=== PATIENT | female | born 2000 | race Caucasian/White ===

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

== ENCOUNTER 2024-02-08 13:20 | Observation (INO) ==
[2024-02-08] MEDS: SODIUM CHLORIDE 0.9% 1,000 ML IV ONE (14:20)
[2024-02-08] MEDS: KETOROLAC TROMETHAMINE 15 MG/ML VIAL IV STA (14:20)
[2024-02-08] MEDS: ONDANSETRON INJ 2 MG/ML 2 ML VIAL IV STA (14:20)
[2024-02-08 14:28] LABS: Basophils # (auto) 0.05 K/uL (0.00-0.20); Basophils % (auto) 0.7 %; Eosinophils # (auto) 0.12 K/uL (0.00-0.50); Eosinophils % (auto) 1.6 %; Hematocrit (blood only) 38.9 % (37.0-47.0); Immature Granulocytes # (auto) 0.01 K/uL (0.01-0.20); Immature Granulocytes % (auto) 0.1 %; Lymphocytes # (auto) 2.56 K/uL (1.20-3.40); Lymphocytes % (auto) 33.6 %; Mean Corpuscular Hemoglobin 28.8 pg (25.0-34.0); Mean Corpuscular Hgb Conc 33.4 g/dL (32.0-36.0); Mean Corpuscular Volume 86.3 fL (80.0-100.0); Mean Platelet Volume 10.2 fL (9.4-12.4); Monocytes % (auto) 7.9 %; Neutrophils # (auto) 4.27 K/uL (1.40-6.50); Neutrophils % (auto) 56.1 %; Platelet Count 252 K/uL (130-400); RDW Coefficient of Variation 14.6 % (11.5-14.5); RDW Standard Deviation 46.1 fL (36.4-46.3); Red Blood Count 4.51 M/uL (4.20-5.40); White Blood Count 7.61 K/ul (4.8-10.8)
[2024-02-08 14:41] LABS: BUN Creatinine Ratio 12.6 (10-20); Calcium 8.9 mg/dl (8.6-10.3); Creatinine Clr Calc Pharmacy 99.9 ml/min; Est GFR (African American) 108.1 ml/min; Est GFR (Non-African American) 93.2 ml/min; Potassium 3.6 mmol/L (3.5-5.1)
--- NOTE | 2024-02-08 16:51 | History & Physical Report ---
Date of Service February 08, 2024 Assessment & Plan (1) Hydronephrosis with renal and ureteral calculous obstruction: (2) Right flank pain: Plan: -Abdomen/pelvis CT performed yesterday showed evidence of an 8mm obstructing calculus in the right proximal ureter, as well as moderate right hydronephrosis. -Continue aggressive IVF, pain management: oral Tylenol for mild pain or IV Toradol for moderate pain or oral oxycodone for severe pain. -Continue IV ondansetron PRN for nausea, order oral Flomax and strain urine. -Urology consult, spoke to on-call who recommended NPO at midnight for possible procedure in AM. (3) Nicotine dependence, unspecified, uncomplicated: Plan: -Patient mentions that they feel like they will eventually need a nicotine patch to help curb the nicotine craving. -Patient attempting [contemplating stage] to quit. -Order nicotine patch DVT Prophylaxis: SCDs Code Status: Full Code PCP: MAGDALENA Moy Dispo: Admit to Med/Surg Patient seen in collaboration with Dr. Pierce. Please see addendum. I spent a total of 75 minutes coordinating, documenting, and providing care for this patient excluding time spent in the performance of separately billed services. This included personally reviewing all current laboratories and imaging studies, medical reconciliation, outpatient chart review and discussion with specialists. History of Present Illness Chief Complaint: Right-Sided Flank Pain Primary Care Provider: MAGDALENA Johnson Omar Ferris is a 23y/o F with PMHx of nicotine dependence, depression with anxiety, gestational DM, amenorrhea/abnormal uterine bleeding, migraine-cluster headache syndrome, suicidal ideations, deliberate self-cutting, gender identity disorder and attention deficit disorder w/o hyperactivity who presented to the ED for further evaluation of ongoing right-sided flank pain x 3 days. History obtained from patient, and previous PCP/ED records. Patient was seen and evaluated yesterday in the ED for severe right-sided flank pain radiating to the abdomen, with associated N/V and poor appetite. Abdomen/pelvis CT performed yesterday showed evidence of an 8mm obstructing calculus in the right proximal ureter, as well as moderate right hydronephrosis. Urology was consulted at that time and it was decided that they should consider undergoing cystoscopy to the next day to mechanically pass the stone, as an 8mm kidney stone is less likely to spontaneously pass. However, the patient decided to leave AMA after being instructed that they could not leave the ED to go outside and smoke whilst waiting to be admitted to the floor. Records show that the patient has an unidentified significant past trauma associated with [facility], and that they did not feel comfortable staying here overnight to move forward with treatment in the AM. Patient is seen at bedside in the ED this afternoon. Patient states that they left last night and went home to gather their thoughts as to whether or not they wanted to proceed with the cystoscopy procedure, per urology consideration. Patient mentions that they ultimately decided to return to the ED, as their pain has not fully subsided, and to meet with urology to discuss the next steps involved with treating this kidney stone. Patient states that they now feel more comfortable moving ahead with an invasive procedure to remove the kidney stone, such as cystoscopy. Patient currently reports 4/10 dull, achy pain in the right flank region that continues to radiate to their abdomen. However, patient mentions that they are feeling more comfortable now than they did at home this morning. Patient does report one episode of vomiting this morning, but denies any current nausea. Of note, patient did receive Zofran and ketorolac in the ED. Patient denies any fevers, chills or headaches. Patient does endorse some dizziness, but denies any recent falls at home. Patient further denies any dysuria, hematuria or bowel habit changes. Patient reports not eating since yesterday morning, but states they have been consuming an adequate amount of fluids. As alluded to previously, patient endorses not having much of an appetite these past 3 days. Patient does currently breastfeed their child at home, but is agreeable to "pump and dump" while they are admitted and receiving various medications that could potentially affect the quality/safety of their breast milk. Patient denies any hx of previous kidney stones. Allergies Allergy/AdvReac Type Severity Reaction Status Date / Time No Known Allergies Allergy Unknown Verified 02/07/24 19:46 Home Medications Medication Instructions Recorded Confirmed Type iron,carbonyl 65 mg-vitamin C 125 1 tab PO DAILY 10/19/23 02/08/24 History mg tablet,delayed release (Vitron-C) vit no.95-ferrous 1 tab PO DAILY 10/19/23 02/08/24 History fumarate 28 mg-folic acid 800 mcg tablet () acetaminophen 325 mg tablet 650 mg PO QID PRN Pain 02/07/24 02/08/24 History (Tylenol) Past Med/Surg History Medical History Generalized anxiety disorder Does not currently take any psych medications. Depression affecting in third trimester, antepartum Anxiety during in third trimester, antepartum Thick meconium stained amniotic fluid Gestational hypertension Gestational diabetes mellitus (GDM) affecting , antepartum GDM, class A2 Headache Hx of migraines Acne Migraine without aura and without status migrainosus, not intractable Amenorrhea Nicotine dependence, unspecified, uncomplicated Abnormal uterine bleeding (AUB) History of suicidal ideation No psych medications/no therapy. Migraine-cluster headache syndrome Attention deficit disorder without hyperactivity Depression with anxiety Does not currently take any psych medications. Surgical History [place] teeth removed history of Family History Mother No pertinent family history Grandfather (Maternal) Colorectal cancer Denies family history of Pancreatic cancer Ovarian cancer Prostate cancer Breast cancer Uterine cancer Social History Smoking Status: Current every day smoker Tobacco Type: Cigarettes Cigarettes Per Day: 5/day; Second Hand Exposure: No; Do You Dip or Chew Tobacco: No; Tobacco Cessation Education Requested by Patient: No Hx Alcohol Use: No Hx Substance Use: No Preferred Language: Maltese Director [place] [employer] Required: No Beliefs That Will Affect Care: None marital status: Single Current Living Situation: Alone current occupational status: employed current occupation: [employer] Other Information That Helps Us Care for You: No Feels Safe at Home: Yes Safety Concerns: Feels Safe At This Time Assistive Devices: None Review of Systems Review of Systems: At least ten systems reviewed and negative, except as noted in the HPI. Physical Exam Physical Exam: General Appearance: Patient relaxing comfortably in bed, no acute distress. No obvious signs of anxiety. Head: Normocephalic, atraumatic. Eyes: Normal inspection, PERRL, conjunctivae normal, anicteric sclerae. ENT: External ear and nose normal, oropharynx normal. Neck: Normal visual inspection, trachea midline, no thyromegaly. Respiratory: Normal respiratory effort, lungs clear to auscultation, no wheeze, rales, rhonchi. No accessory muscle use. Cardiovascular: Regular rate, rhythm, no murmur, normal peripheral pulses, no BLE edema. Vessels: No JVD. Chest: Normal inspection of chest. Abdomen/GI: Normal bowel sounds, some RLQ discomfort to deep palpation. Nontender throughout, mild distention. Extremities/Musculoskeletal: No cyanosis or clubbing, no other deformities noted. Neurologic: PERRL, EOMI, accommodation nl, no face palsy, no dysarthria, CN's II-XI intact bilaterally and moves all extremities. Psychiatric: A+Ox3, euthymic affect. Skin: No rashes, normal color, warm/dry. Results & Data Results & Data Vital Signs (Past 12 Hours) Vital Signs Temp Pulse Pulse Resp BP BP Pulse Ox 02/08/24 16:13 71 16 119/82 98 02/08/24 14:15 60 02/08/24 13:46 36.4 C L 79 18 123/75 97 O2 Del Method 02/08/24 16:13 Room Air 02/08/24 14:15 02/08/24 13:46 Room Air Laboratory Results Short CBC 02/08/24 Range/Units 14:08 WBC 7.61 (4.8-10.8) K/ul Hgb 13.0 (12.0-16.0) g/dl Hct 38.9 (37.0-47.0) % Plt Count 252 (130-400) K/uL [facility] 02/08/24 14:08 Sodium 140 Potassium 3.6 Chloride 110 H Carbon Dioxide 25 BUN 11 Creatinine 0.87 Glucose 102 H Calcium 8.9 Diagnostic Findings PERTINENT DIAGNOSTIC IMAGING REPORTS FROM 02/07/24 ENCOUNTER - No further imaging ordered during today's encounter [02/08/24]. Pelvis Ultrasound 02/07/24 16:10 ULTRASOUND OF THE PELVIS CLINICAL HISTORY: Right-sided abdominal/pelvic pain. COMPARISON STUDY: No priors. TECHNIQUE: Real-time, grayscale, and color flow sonography of the pelvis is performed both transabdominally and endovaginally. Images are reviewed in the transverse and longitudinal planes. The endovaginal examination was performed for better assessment of the ovaries and adnexa. FINDINGS: Uterus: The uterus is normal in size and echotexture, measuring 7.8 x 3.2 x 4.9 cm. Endometrium: The endometrium is normal in appearance, and the endometrial stripe is normal in thickness measuring up to 0.9 cm. Ovaries: The ovaries are normal in size and morphology. The right ovary measures 3.0 x 1.0 x 2.6 cm and the left ovary measures 2.7 x 1.7 x 1.8 cm. Small follicles are seen bilaterally. Normal Doppler waveforms are shown within both ovaries. Pelvis: There is no free fluid in the cul-de-sac. No concerning adnexal lesion is seen. IMPRESSION: No acute sonographic abnormality is identified in the pelvis. ACT 112: Negative or not required by law. Electronically signed by: John Hollis M.D. 02/07/2024 6:38 PM Transvaginal US 02/07/24 16:10 ULTRASOUND OF THE PELVIS CLINICAL HISTORY: Right-sided abdominal/pelvic pain. COMPARISON STUDY: No priors. TECHNIQUE: Real-time, grayscale, and color flow sonography of the pelvis is performed both transabdominally and endovaginally. Images are reviewed in the transverse and longitudinal planes. The endovaginal examination was performed for better assessment of the ovaries and adnexa. FINDINGS: Uterus: The uterus is normal in size and echotexture, measuring 7.8 x 3.2 x 4.9 cm. Endometrium: The endometrium is normal in appearance, and the endometrial stripe is normal in thickness measuring up to 0.9 cm. Ovaries: The ovaries are normal in size and morphology. The right ovary measures 3.0 x 1.0 x 2.6 cm and the left ovary measures 2.7 x 1.7 x 1.8 cm. Small follicles are seen bilaterally. Normal Doppler waveforms are shown within both ovaries. Pelvis: There is no free fluid in the cul-de-sac. No concerning adnexal lesion is seen. IMPRESSION: No acute sonographic abnormality is identified in the pelvis. ACT 112: Negative or not required by law. Electronically signed by: John Hollis M.D. 02/07/2024 6:38 PM Appendix Ultrasound 02/07/24 16:11 ULTRASOUND OF THE APPENDIX CLINICAL HISTORY: Right lower quadrant abdominal pain. Right flank pain. COMPARISON STUDY: No priors. FINDINGS: Real-time, grayscale, and color flow sonography of the right lower quadrant was performed to assess for acute appendicitis. There is moderate right-sided hydronephrosis. A blind-ending tubular structure in the right lower quadrant likely represents the appendix. This is top normal in size measuring up to 5 mm and was at least partially compressible in examination. This was difficult to assess due to patient discomfort. No inflammatory changes or free fluid are seen in the right lower quadrant. Prominent lymph nodes are seen in the right lower quadrant. IMPRESSION: 1. There is moderate right-sided hydronephrosis. This is suspicious for an obstructing ureteral stone. Correlate with clinical findings and urinalysis. 2. A structure that likely represents the appendix is seen in the right lower quadrant. This is top normal in caliber and was at least partially compressible during the examination. This is of low suspicion for acute appendicitis and clinical correlation will be required. If warranted this could be further assessed with CT. ACT 112: Negative or not required by law. Electronically signed by: John Hollis M.D. 02/07/2024 6:01 PM Abdomen/Pelvis CT 02/07/24 17:19 CT SCAN OF THE ABDOMEN AND PELVIS WITH IV CONTRAST CLINICAL HISTORY: Right lower quadrant abdominal pain. COMPARISON STUDY: Right lower quadrant and pelvic ultrasounds performed the same day 02/07/2024. TECHNIQUE: Following the IV administration of 94 cc of Optiray 320, CT scan of the abdomen and pelvis is performed from the lung bases to the proximal femora. Images are reviewed in the axial, sagittal, and coronal planes. IV contrast was administered without complication. A dose lowering technique was utilized adhering to the principles of ALARA. CT DOSE: 730.75 mGy.cm FINDINGS: Lung bases: The heart is normal in size and without pericardial effusion. The lung bases are clear noting dependent atelectasis. Liver: The contrast-enhanced liver is normal in size, contour, and attenuation. There is no intrahepatic biliary ductal dilatation. The hepatic veins and portal veins are patent. Gallbladder: Unremarkable. Spleen: Normal in size and attenuation. Pancreas: Unremarkable. Adrenal glands: Unremarkable. Kidneys: The contrast enhanced kidneys are normal in size. There is an 8 mm obstructing calculus in the proximal ureter at the level of L2-L3. This is best seen on image #133 and causes moderate right hydronephrosis. There is heterogeneously diminished enhancement of the right kidney, with right-sided perinephric stranding and fluid. There is no left-sided hydronephrosis in the left kidney enhances normally. There is additional 5 mm nonobstructing right renal calculus. A punctate nonobstructing calculus is seen in the left upper pole. Abdominal vasculature: The abdominal aorta is normal in course and caliber. Bowel: There is no bowel obstruction. Mild fecal retention is seen throughout the colon. The appendix is well-visualized and normal. Peritoneum: There is no intraperitoneal free air or abdominal ascites. Lymphadenopathy: None. Pelvic viscera: The bladder, uterus, and adnexa are normal as visualized noting bilateral ovarian follicles. There is trace free fluid in the cul-de-sac. Skeletal structures: No lytic or blastic lesions are seen. IMPRESSION: 1. There is an 8 mm obstructing calculus in the right proximal ureter as above. This causes moderate right hydronephrosis. 2. There is right-sided perinephric stranding and fluid, as well as heterogeneously diminished enhancement of the right kidney as compared to the left. This is likely secondary to obstruction/hydronephrosis. Correlate with clinical findings and urinalysis. 3. Additional nonobstructing bilateral renal calculi as above. 4. Normal appendix. 5. Free fluid in cul-de-sac is nonspecific and likely physiologic. 6. Additional findings as above. ACT 112: Negative or not required by law. Electronically signed by: John Hollis M.D. 02/07/2024 6:44 PM Medications Administered Discontinued Medications Sodium Chloride (Nss) 1,000 mls @ 999 mls/hr IV .Q1H1M ONE Stop: 02/08/24 14:29 Last Infusion: 02/08/24 15:21 Dose: Infused Documented By: Admin: 02/08/24 14:20 Dose: 999 mls/hr Documented By: GEOFF Ketorolac Tromethamine (Ketorolac Tromethamine 15 Mg/Ml Vial) 15 mg IV NOW STA Stop: 02/08/24 13:30 Last Admin: 02/08/24 14:20 Dose: 15 mg Documented By: GEOFF Ondansetron HCl (Ondansetron Inj 2 Mg/Ml 2 Ml Vial) 4 mg IV NOW STA Stop: 02/08/24 13:30 Last Admin: 02/08/24 14:20 Dose: 4 mg Documented By: GEOFF Code Status & VTE Plan Code Status FULL CODE VTE Prophylaxis Plan VTE Prophylaxis will be ordered: Yes Supervising Physician Co-Signing Physician Notes I have seen and examined the patient and have discussed the case with the provider above. I have reviewed the advanced practitioner's documentation, and I agree with, and take responsibility for that plan of care. 23 yo F with no h/o kidney stones presents with ureteral colic from impacted stone She is comfortable and pain well controlled Denies any blood in urine or urinary issues REported some right flank pain radiating into her groin yesterday which has resolved. Urology consulted No CVA tenderness, no abd TTP or distension VSS, unremarkable physical exam Labs/meds/imaging reviewed. WBC improved to normal today. 1. Ureteral stone-right Cont IVF, tamsulosin, pain control efforts as needed Smoking cessation recommended. DO Stan (3) Nicotine dependence, unspecified, uncomplicated Nicotine product type: cigarettes Qualified Code(s): F17.210 - Nicotine dependence, cigarettes, uncomplicated
[2024-02-08] MEDS ORDERED: POLYETHYLENE (MIRALAX) 17 GM PACK PO PRN (17:41)
[2024-02-08] MEDS ORDERED: ACETAMINOPHEN 325 MG TAB PO PRN (17:41)
[2024-02-08] MEDS ORDERED: ONDANSETRON INJ 2 MG/ML 2 ML VIAL IV PRN (17:41)
[2024-02-08] MEDS: SODIUM CHLORIDE 0.9% 1,000 ML IV SCH (17:53)
[2024-02-08] MEDS: NICOTINE 14 MG/24 HR PATCH TD SCH (18:41)
[2024-02-08] MEDS: LORazepam 0.5 MG TAB PO ONE (19:11)
[2024-02-08] MEDS: TAMSULOSIN HCL 0.4 MG CAP PO SCH (19:11)
--- NOTE | 2024-02-08 19:25 | Urology Consultation ---
<Statement entered by Cruz Vásquez MD - 02/09/24 08:00> I have discussed Ms. Ferris's case with Alejandro Kinney PA-C and agree with the above documentation. Ongoing right flank pain from right ureteral stone. Hemodynamically stable with reassuring lab work. For pain control we will plan for stent placement on 02/09/2024. -rCuz Vásquez MD. Date of Consultation February 08, 2024 Assessment & Plan (1) Hydronephrosis with renal and ureteral calculous obstruction: Patient has been admitted on the hospital service. From a urologic perspective we recommend the following: Provide analgesicsprovide antiemetics Flomax has been initiated for expulsive therapy IV fluids to be provided for hydration Will make the patient n.p.o. after midnight in anticipation for possible cystoscopy with Dr. Vásquez on 02/09/2024 At the present time the patient is nontoxic-appearing. She is afebrile and normotensive. She is also without tachycardia or leukocytosis. Her renal function is normal, therefore I feel conservative management this evening is reasonable without the need for emergent procedure Additional recommendations be forthcoming based on her clinical course as it unfolds History of Present Illness Reason for Consultation: Nephrolithiasis Attending Physician: Sabi Pierce, History of Present Illness This is a 23-year-old female who is known to [facility] physician group urology. The patient was seen in the emergency department on 02/07/2024 secondary to flank pain that began yesterday morning. She note that the flank pain rating to the front of her abdomen. She has no prior history of kidney stones. She denied any fevers, shakes, or chills. She also denied any nausea or vomiting. During her initial presentation the emergency department a CT scan of the abdomen pelvis showed an 8 mm obstructing kidney stone in the right proximal ureter resulting in hydronephrosis. Labs at this time included CBC were white blood cell count was elevated 16.7. Her hemoglobin and hematocrit as well as platelet count were normal. Chemistry profile showed sodium, potassium, BUN, and creatinine were all normal. Urinalysis was not indicative of infection. The patient was tentatively scheduled for cystoscopy with Dr. Vásquez on 02/08/2024, however the patient signed out AGAINST MEDICAL ADVICE and therefore her procedure was never performed. The patient Brock presented to the emergency department secondary to her kidney stone. She notes that she is having some right-sided flank pain although not as severe as what was noted previously. She again denies any fevers, shakes, or chills. No nausea or vomiting is noted. She denies any dysuria or hematuria. Since representation did not any Medical Center the patient has had labs performed. A CBC revealed white blood cell count, hemoglobin, hematocrit, and platelet count are all within normal range. Chemistry profile showed sodium and potassium along with the BUN and creatinine are normal. At the time of my interview the patient was resting comfortably in bed and she is in no distress. Allergies Allergy/AdvReac Type Severity Reaction Status Date / Time No Known Allergies Allergy Unknown Verified 02/07/24 19:46 Home Medications Medication Instructions Recorded Confirmed Type iron,carbonyl 65 mg-vitamin C 125 1 tab PO DAILY 10/19/23 02/08/24 History mg tablet,delayed release (Vitron-C) vit no.95-ferrous 1 tab PO DAILY 10/19/23 02/08/24 History fumarate 28 mg-folic acid 800 mcg tablet () acetaminophen 325 mg tablet 650 mg PO QID PRN Pain 02/07/24 02/08/24 History (Tylenol) Patient History Medical History Generalized anxiety disorder Does not currently take any psych medications. Depression affecting in third trimester, antepartum Anxiety during in third trimester, antepartum Thick meconium stained amniotic fluid Gestational hypertension Gestational diabetes mellitus (GDM) affecting , antepartum GDM, class A2 Headache Hx of migraines Acne Migraine without aura and without status migrainosus, not intractable Amenorrhea Nicotine dependence, unspecified, uncomplicated Abnormal uterine bleeding (AUB) History of suicidal ideation No psych medications/no therapy. Migraine-cluster headache syndrome Attention deficit disorder without hyperactivity Depression with anxiety Does not currently take any psych medications. Surgical History [place] teeth removed history of Family History Mother No pertinent family history Grandfather (Maternal) Colorectal cancer Denies family history of Pancreatic cancer Ovarian cancer Prostate cancer Breast cancer Uterine cancer Social History Smoking Status: Current every day smoker Tobacco Type: Cigarettes Cigarettes Per Day: 5/day; Second Hand Exposure: No; Do You Dip or Chew Tobacco: No; Tobacco Cessation Education Requested by Patient: No Hx Alcohol Use: No Hx Substance Use: No Preferred Language: Azeri User Experience Lead Required: No Beliefs That Will Affect Care: None marital status: Single Current Living Situation: Alone current occupational status: employed current occupation: [employer] Other Information That Helps Us Care for You: No Feels Safe at Home: Yes Safety Concerns: Feels Safe At This Time Assistive Devices: None Review of Systems Review of Systems: All systems reviewed & are unremarkable except as noted in Subjective Physical Exam Constitutional: WD/WN, vitals as above Eyes: no conjunctival abnormality ENMT: Ears: no hearing impairment and no external ear abnormality Mouth: no oropharynx abnormality Neck: trachea midline Respiratory: normal respiratory effort; no respiratory distress and no labored breathing Cardiovascular: Rate/Rhythm: regular rate and regular rhythm Gastrointestinal (Abdomen): Abdomen is soft and nondistended. There is no pain with palpation. There is no rebound tenderness or guarding Musculoskeletal: No calf tenderness Skin: no rashes Neurologic: moves all extremities Psychiatric: A+Ox3, euthymic affect Genitourinary: No CVA tenderness with percussion bilaterally Results & Data Vital Signs (Past 12 Hours) Vital Signs Temp Pulse Pulse Pulse Resp BP BP 02/08/24 17:13 36.6 C 84 17 112/71 02/08/24 16:13 71 16 119/82 02/08/24 14:15 60 02/08/24 13:46 36.4 C L 79 18 123/75 Pulse Ox O2 Del Method 02/08/24 17:13 99 Room Air 02/08/24 16:13 98 Room Air 02/08/24 14:15 02/08/24 13:46 97 Room Air PG Care Time/CCT Total # of Minutes Spent Total Time Spent with Patient: Total time spent is greater than 50% in coordination of care (as documented) at patient's floor/unit and/or counseling patient: Coding Level of Care Code 48262 IN/OBS CONSULT LVL 5,80M Diagnoses Hydronephrosis with renal and ureteral calculous obstruction N13.2
--- NOTE | 2024-02-08 20:26 | Emergency Department Note ---
History of Present Illness General Chief Complaint: Kidney Stone Stated Complaint: KIDNEY STONE (8 MM) PAIN,NAUSEA,VOMITTING Time Seen by Provider: 02/08/24 13:29 History of Present Illness Provider Complaint: abdominal pain Onset (ago): 2 day(s) Pain Consistency: intermittent Location: RLQ Severity: moderate Maximum Pain Intensity: 4 Current Pain Intensity: 4 Quality: + stabbing and + sharp Relieved By: + nothing Exacerbated By: + nothing Context: no foreign travel, no possible food poisoning, no sick contacts, no recent antibiotic use, no recent surgery/procedure or no recent injury Associated Symptoms: + nausea and + vomiting; no diarrhea, no fever, no chills, no constipation, no dysuria, no hematemesis, no hematuria, no headache, no chest pain and no breathing difficulty Patient states she is now ready to be admitted to the hospital as she was supposed to be last night. Related Data Gestational Age Based on EDC: 40 Wks 1 D Home Medications Medication Instructions Recorded Confirmed Type iron,carbonyl 65 mg-vitamin C 125 1 tab PO DAILY 10/19/23 02/08/24 History mg tablet,delayed release (Vitron-C) vit no.95-ferrous 1 tab PO DAILY 10/19/23 02/08/24 History fumarate 28 mg-folic acid 800 mcg tablet () acetaminophen 325 mg tablet 650 mg PO QID PRN Pain 02/07/24 02/08/24 History (Tylenol) Allergies Allergy/AdvReac Type Severity Reaction Status Date / Time No Known Allergies Allergy Unknown Verified 02/07/24 19:46 Past Med/Surg History Medical History Generalized anxiety disorder Does not currently take any psych medications. Depression affecting in third trimester, antepartum Anxiety during in third trimester, antepartum Thick meconium stained amniotic fluid Gestational hypertension Gestational diabetes mellitus (GDM) affecting , antepartum GDM, class A2 Headache Hx of migraines Acne Migraine without aura and without status migrainosus, not intractable Amenorrhea Nicotine dependence, unspecified, uncomplicated Abnormal uterine bleeding (AUB) History of suicidal ideation No psych medications/no therapy. Migraine-cluster headache syndrome Attention deficit disorder without hyperactivity Depression with anxiety Does not currently take any psych medications. 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 Beliefs That Will Affect Care: None marital status: Single Current Living Situation: Alone current occupational status: employed current occupation: [employer] Other Information That Helps Us Care for You: No Feels Safe at Home: Yes Safety Concerns: Feels Safe At This Time Assistive Devices: None Physical Exam 2 Vital Signs: Vital Signs - 24 hr 02/08/24 13:46 02/08/24 14:15 Temperature 36.4 C L Temperature Source Temporal Artery Sc an Pulse Rate 79 60 Respiratory Rate 18 Respiratory Patter n Regular Blood Pressure 123/75 Blood Pressure Dorys n 91 Pulse Oximetry 97 Oxygen Delivery Me thod Room Air Sepsis Recent Feve r Within 48 Hours No Sepsis New/Unexpla ined Change in Men barbara Status No Sepsis Action Take n by Nursing No Action Required Physical Exam: Physical Exam GENERAL: She is oriented to person, place, and time. She appears well-developed and well-nourished. She does not appear distressed. HENT: Exam performed. -Head: Normocephalic and atraumatic. -Right Ear: External ear normal. No mastoid erythema -Left Ear: External ear normal. No mastoid erythema -Mouth/Throat: The oropharynx is clear and moist. No trismus in the jaw. No dental abscesses or uvula swelling. No oropharyngeal exudate or tonsillar abscesses. EYES: Conjunctivae and EOM are normal.Right eye exhibits no discharge. Left eye exhibits no discharge. No scleral icterus. NECK: Normal range of motion. Neck supple. No JVD present. No tracheal deviation and normal range of motion present. CV: Normal rate, regular rhythm, normal heart sounds and intact distal pulses. There is no peripheral edema. Palpable radial pulses bue. PULM/CHEST: Effort normal and breath sounds normal. No respiratory distress. No stridor. She has no wheezes. She has no rales. -Chest Wall: She exhibits no tenderness. ABD: The abdomen is soft. Bowel sounds are normal. She has no distension. No mass is present. There is no tenderness. There is no rebound, no guarding, no Blanchard's sign and no tenderness at McBurney's point. Rovsig negative MUSC/SKEL: Normal range of motion. There is no peripheral edema, tenderness or deformity. NEURO: Motor and sensation grossly intact. SKIN: Skin is warm and dry. She is not diaphoretic. PSYCH: She has a normal mood and affect. Behavior is normal. Judgment and thought content normal. Course Course 1329: The patient was evaluated in room A12A. A complete history and physical exam was performed Administered Medications Sodium Chloride (Nss) 1,000 mls @ 125 mls/hr IV .Q8H JERMAINE Stop: 03/09/24 17:40 Last Admin: 02/08/24 17:53 Dose: 125 mls/hr Documented By: JAI Nicotine (Nicotine 14 Mg/24 Hr Patch) 1 patch TD QAM JERMAINE Stop: 03/09/24 17:40 Last Admin: 02/08/24 18:41 Dose: 1 patch Documented By: JAI Tamsulosin HCl (Tamsulosin Hcl 0.4 Mg Cap) 0.4 mg PO HS JERMAINE Stop: 03/09/24 20:59 Last Admin: 02/08/24 19:11 Dose: 0.4 mg Documented By: W Discontinued Medications Sodium Chloride (Nss) 1,000 mls @ 999 mls/hr IV .Q1H1M ONE Stop: 02/08/24 14:29 Last Infusion: 02/08/24 15:21 Dose: Infused Documented By: Admin: 02/08/24 14:20 Dose: 999 mls/hr Documented By: GEOFF Ketorolac Tromethamine (Ketorolac Tromethamine 15 Mg/Ml Vial) 15 mg IV NOW STA Stop: 02/08/24 13:30 Last Admin: 02/08/24 14:20 Dose: 15 mg Documented By: GEOFF Lorazepam (Lorazepam 0.5 Mg Tab) 0.5 mg PO ONE ONE Stop: 02/08/24 18:58 Last Admin: 02/08/24 19:11 Dose: 0.5 mg Documented By: SRW Ondansetron HCl (Ondansetron Inj 2 Mg/Ml 2 Ml Vial) 4 mg IV NOW STA Stop: 02/08/24 13:30 Last Admin: 02/08/24 14:20 Dose: 4 mg Documented By: [facility] Medical Decision Making Laboratory Data Attestation: I reviewed the patient's lab results. 02/08/24 14:08 02/08/24 14:08 Lab Results 02/08/24 Range/Units 14:08 WBC 7.61 (4.8-10.8) K/ul RBC 4.51 (4.20-5.40) M/uL Hgb 13.0 (12.0-16.0) g/dl Hct 38.9 (37.0-47.0) % MCV 86.3 (80.0-100.0) fL MCH 28.8 (25.0-34.0) pg MCHC 33.4 (32.0-36.0) g/dL RDW Std Deviation 46.1 (36.4-46.3) fL RDW Coeff of Navi 14.6 H (11.5-14.5) % Plt Count 252 (130-400) K/uL MPV 10.2 (9.4-12.4) fL Immature Gran % (Auto) 0.1 % Neut % (Auto) 56.1 % Lymph % (Auto) 33.6 % [place] % (Auto) 7.9 % Eos % (Auto) 1.6 % Baso % (Auto) 0.7 % Neut # (Auto) 4.27 (1.40-6.50) K/uL Lymph # (Auto) 2.56 (1.20-3.40) K/uL [place] # (Auto) 0.60 H (0.11-0.59) K/uL Eos # (Auto) 0.12 (0.00-0.50) K/uL Baso # (Auto) 0.05 (0.00-0.20) K/uL Immature Gran # (Auto) 0.01 (0.01-0.20) K/uL Sodium 140 (136-145) mmol/L Potassium 3.6 (3.5-5.1) mmol/L Chloride 110 H (98-107) mmol/L Carbon Dioxide 25 (21-32) mmol/L Anion Gap 5 (3-11) BUN 11 (6-23) mg/dl Creatinine 0.87 (0.6-1.2) mg/dl Est Cr Clr Drug Dosing 99.9 ml/min Est GFR ( Amer) 108.1 ml/min Est GFR (Non-Af Amer) 93.2 ml/min BUN/Creatinine Ratio 12.6 (10-20) Glucose 102 H (70-99(Fasting)) mg/dl Calcium 8.9 (8.6-10.3) mg/dl MDM Narrative Cardiac monitoring: An order was placed for continuous cardiac monitoring. The monitor shows a rate of 80 with sinus rhythm interpreted by me Patient was supposed to be admitted to the hospitalist team last night for a kidney stone. Patient left AMA under the hospitalist service. She states she is now mentally prepared to be admitted to have her kidney stone dealt with. Discussed case with Dr. Vásquez agrees patient should be readmitted to the medicine service. No evidence of sepsis or SANDRA. Impression & Plan Hydronephrosis with renal and ureteral calculous obstruction Discharge Plan Visit Data Chief Complaint: Kidney Stone Stated Complaint: KIDNEY STONE (8 MM) PAIN,NAUSEA,VOMITTING ED Provider: Victor Hugo Rajput Discharge Problem: Hydronephrosis with renal and ureteral calculous obstruction Patient Disposition: Admitted As Inpatient Discharge Instructions Interventions: ED Discharge Assessment Last Done: 02/08/24 13:20
[2024-02-08] MEDS: KETOROLAC TROMETHAMINE 15 MG/ML VIAL IV PRN (21:42)
[2024-02-08] MEDS ORDERED: LORazepam 1 MG TAB PO PRN (21:45)
[2024-02-08] MEDS: LORazepam 1 MG TAB PO STA (21:49)
--- NOTE | 2024-02-09 08:02 | Urology Progress Note ---
Date of Service February 09, 2024 Assessment & Plan (1) Right flank pain: (2) Hydronephrosis with renal and ureteral calculous obstruction: (3) Nephrolithiasis: Plan We reviewed the plan for cystoscopy, right retrograde pyelogram and right ureteral stent placement. We reviewed risks and benefits of the surgery including risk of bleeding, infection, injury to urinary tract, inability to place stent, need for additional procedures. She expressed understanding and would like to proceed with surgery. Admission and Anticipated Discharge Date Admission Date: February 08, 2024 Subjective Feeling okay this morning, still having some right flank pain Denies any fevers or chills, denies chest pain or shortness of breath WBC 7.61 on arrival. Creatinine 0.87. No urine culture data, although urinalysis from 02/06 was negative for leukocyte esterase, negative bacteria and negative nitrites. Physical Exam Physical Exam: Uncomfortable appearing, NAD Results & Data Vital Signs (Past 12 Hours) Vital Signs Temp Pulse Resp BP Pulse Ox O2 Del Method 02/09/24 07:10 36.6 C 69 14 101/61 96 Room Air PG Care Time/CCT Total # of Minutes Spent Total Time Spent with Patient: Total time spent is greater than 50% in coordination of care (as documented) at patient's floor/unit and/or counseling patient: Coding Level of Care Code 19885 SUB INP/OBS CARE 2/35MIN Diagnoses Right flank pain R10.9 Hydronephrosis with renal and ureteral calculous obstruction N13.2 Nephrolithiasis N20.0
[2024-02-09] MEDS ORDERED: NON-FORMULARY MEDICATION (Iron,Carbonyl-Vitamin C [Vitron-C] 65 mg iron- 125 mg Tablet,Del PO SCH (09:00)
[2024-02-09] MEDS ORDERED: fentaNYL citrate PF 100 MCG/2 ML VIAL IV PRN (10:12)
[2024-02-09] MEDS ORDERED: ePHEDrine sulfate 50 MG/ML AMP IV PRN (10:12)
[2024-02-09] MEDS ORDERED: ONDANSETRON INJ 2 MG/ML 2 ML VIAL IV PRN (10:12)
[2024-02-09] MEDS ORDERED: ATROPINE SULFATE 0.1 MG/ML 10ML SYR IV PRN (10:12)
--- NOTE | 2024-02-09 10:15 | Anesthesiology Consultation ---
Date of Service February 09, 2024 Assessment & Plan Chart Review Chart Review: Acceptable Risk for Surgery and Patient NOT seen in Pre Admission Testing Consults Requested none ASA ASA2 Proposed Anesthesia Anesthesia Type: MAC Risk / Benefits Reviewed With: PT / POA / Parent / Guardian, Accepts Plan and Informed Consent Obtained History Surgery Operation Date: 02/09/24 11:00 Proposed Procedures p Cystoscopy Right Ureteral Stent Insertion(Right) - Cruz Vásquez MD Height/Weight Height: 5 ft 5 in Weight: 73.1 kg Allergies Allergy/AdvReac Type Severity Reaction Status Date / Time No Known Allergies Allergy Unknown Verified 02/07/24 19:46 Medications Home Medications Medication Instructions Recorded Confirmed Last Taken iron,carbonyl 65 mg-vitamin C 125 1 tab PO DAILY 10/19/23 02/08/24 11/29/23 mg tablet,delayed release (Vitron-C) vit no.95-ferrous 1 tab PO DAILY 10/19/23 02/08/24 11/29/23 fumarate 28 mg-folic acid 800 mcg tablet () acetaminophen 325 mg tablet 650 mg PO QID PRN Pain 02/07/24 02/08/24 02/08/24 (Tylenol) Active Medications Generic Name Dose Route Start Last Admin Trade Name Freq PRN Reason Stop Dose Admin Sodium Chloride 1,000 mls @ 125 mls/hr 02/08/24 17:41 02/09/24 09:12 Nss IV 03/09/24 17:40 0 mls/hr .Q8H JERMAINE Infusion Ketorolac Tromethamine 15 mg 02/08/24 17:41 02/08/24 21:42 Ketorolac Tromethamine 15 Mg/Ml Vial IV 02/13/24 17:40 15 mg Q6H PRN Administration Moderate Pain (Scale 4, 5, 6) Miscellaneous 1 each 02/09/24 08:59 02/09/24 09:11 Remove Nicoderm Patch N/A 03/10/24 08:58 1 each DAILY@0859 JERMAINE Administration Nicotine 1 patch 02/08/24 17:41 02/08/24 18:41 Nicotine 14 Mg/24 Hr Patch TD 03/09/24 17:40 1 patch QAM JERMAINE Administration Tamsulosin HCl 0.4 mg 02/08/24 21:00 02/08/24 19:11 Tamsulosin Hcl 0.4 Mg Cap PO 03/09/24 20:59 0.4 mg HS JERMAINE Administration Past Medical History Medical History Generalized anxiety disorder Does not currently take any psych medications. Depression affecting in third trimester, antepartum Anxiety during in third trimester, antepartum Thick meconium stained amniotic fluid Gestational hypertension Gestational diabetes mellitus (GDM) affecting , antepartum GDM, class A2 Headache Hx of migraines Acne Migraine without aura and without status migrainosus, not intractable Amenorrhea Nicotine dependence, unspecified, uncomplicated Abnormal uterine bleeding (AUB) History of suicidal ideation No psych medications/no therapy. Migraine-cluster headache syndrome Attention deficit disorder without hyperactivity Depression with anxiety Does not currently take any psych medications. Past Family History Family History Mother No pertinent family history Grandfather (Maternal) Colorectal cancer Denies family history of Pancreatic cancer Ovarian cancer Prostate cancer Breast cancer Uterine cancer Past Surgical History Surgical History [place] teeth removed history of Past Anesthesia History No Hx of Anesthesia Complications and No Family Hx of Anesthesia Complications Social History Smoking Status: Current every day smoker Smoking cigarettes per day: 5/day Do You Dip or Chew Tobacco: No Hx Alcohol Use: No Hx Substance Use: No substance use type: does not use Review of Systems ROS Unobtainable: All systems reviewed & are unremarkable except as noted in HPI & below Physical Exam Vital Signs Last Vital Signs Temp 36.6 C 02/09/24 07:10 Pulse 69 02/09/24 07:10 Resp 14 02/09/24 07:10 BP 101/61 02/09/24 07:10 Pulse Ox 96 02/09/24 07:10 O2 Del Method Room Air 02/09/24 07:10 ENMT Mouth: + poor dentition; no TMJ abnormality Thyromental Distance: > or= 3.5 Finger Breadths Mallampati Class: II Neck normal visual inspection and trachea midline; neck extension not limited Respiratory normal respiratory effort Auscultation: lungs clear to auscultation bilaterally Cardiovascular Rate/Rhythm: regular rate and regular rhythm Heart Sounds: no murmur Musculoskeletal Spine: normal cervical ROM Extremities: full ROM of extremities Neurologic moves all extremities Psychiatric Orientation: alert and oriented x 3 Testing Laboratory Results 02/08/24 14:08 02/08/24 14:08
[2024-02-09] MEDS ORDERED: ONDANSETRON INJ 2 MG/ML 2 ML VIAL ONE (10:30)
[2024-02-09] MEDS ORDERED: fentaNYL citrate PF 100 MCG/2 ML VIAL ONE (10:30)
[2024-02-09] MEDS ORDERED: LIDOCAINE 2% 2 ML VIAL/AMP(20MG/ML) INFIL ONE (10:30)
[2024-02-09] MEDS ORDERED: MIDAZOLAM HCL 1 MG/ML 2ML VIAL ONE (10:30)
[2024-02-09] MEDS ORDERED: PROPOFOL IV EMULSION 10 MG/ML 20 ML VIAL IV ONE (10:30)
[2024-02-09] MEDS: ceFAZolin 2,000 MG/15 ML IV PUSH IV ONE (10:52)
[2024-02-09] MEDS: DIATRIZOATE MEGLUMINE 30% 100ML VIAL INSTIL ONE (11:08)
--- NOTE | 2024-02-09 11:13 | Operative Report ---
PG Post Operative Report Pre & Post Diagnosis Operation Date: 02/09/24 11:00 Preoperative diagnosis: Right ureteral stone Postoperative diagnosis: Right ureteral stone I identified the patient and participated in the time-out.: Yes Procedure Operation Date: 02/09/24 11:00 Cystoscopy, right retrograde pyelogram, right ureteral stent placement Surgeon Cruz Vásquez MD Strategic Marketing Leader None Estimated Blood Loss 0 Findings Consistent with Post-Op Diagnosis Specimens None Drains 6 [place] by 24 cm double-J ureteral stent to the right ureter Anesthesia Type MAC Complications none Disposition Accompanied Patient To Recovery: Yes Disposition: Recovery Room Indications This is a 23-year-old female followed by urology for nephrolithiasis. She presented to the ED with flank pain and was found to have a right ureteral stone. Due to intractable pain and possible UTI, she presents to the OR for stent placement to decompress the right kidney. Description of Procedure The patient was identified in the holding area and informed consent was confirmed. She was marked on the right side, then was taken to the operating room where anesthesia was initiated. She was placed in the dorsal lithotomy position with all pressure points appropriately padded. She was prepped and draped in the usual sterile fashion and a preoperative timeout was performed. A well-lubricated cystoscope was inserted per urethra and panendoscopy was performed. The urethra was normal in appearance. The bladder was of normal size with ureteral orifices in orthotopic position. The right ureteral orifice was identified and cannulated with a 5 Nigerien open- ended catheter. A retrograde pyelogram was performed demonstrating the ureter was normal in course and caliber. In the proximal ureter, there was a transition point. Eventually contrast bypassed this and then there was a filling defect in the lower pole of the kidney. there was hydronephrosis of the kidney. A 0.038" ZIPwire was advanced to the level of the kidney under fluoroscopic guidance. Over the wire, a 6 [place]ien x 24 centimeter double-J ureteral stent was advanced. When the wire was removed, the proximal curl was visualized in the kidney with x-ray, and the distal curl visualized in the bladder with the cystoscope. At this point the bladder was drained and all instrumentation was removed. The patient was then awakened from anesthesia and was brought to the PACU in stable condition. I attest to the content of the Intraoperative Record and any orders documented therein. Any exceptions are noted below.
--- NOTE | 2024-02-09 11:22 | Hospitalist Progress Note ---
Date of Service February 09, 2024 Assessment & Plan (1) Hydronephrosis with renal and ureteral calculous obstruction: (2) Right flank pain: Plan: per admitting service notes with addendum: -Abdomen/pelvis CT performed yesterday showed evidence of an 8mm obstructing calculus in the right proximal ureter, as well as moderate right hydronephrosis. -Continue aggressive IVF, pain management: oral Tylenol for mild pain or IV Toradol for moderate pain or oral oxycodone for severe pain. -Continue IV ondansetron PRN for nausea, order oral Flomax and strain urine. -Urology consult, spoke to on-call who recommended NPO at midnight for possible procedure in AM. 02/08 Status post ureteral stent placement Renal function preserved No signs of UTI per urinalysis Currently on IV fluids, Flomax Monitor closely (3) Nicotine dependence, unspecified, uncomplicated: Plan: -Patient mentions that they feel like they will eventually need a nicotine patch to help curb the nicotine craving. -Patient attempting [contemplating stage] to quit. -Order nicotine patch DVT Prophylaxis: SCDs Code Status: Full Code PCP: MAGDALENA Moy Dispo: d/c home when medically stable, Admission and Anticipated Discharge Date Admission Date: February 08, 2024 Subjective Follow-up for right ureteral stone, etc. Seen resting in bed, comfortable, not in distress Seen with RN Manisha at the bedside throughout whole encounter States she feels fine overall Pain well-controlled No problems with urination, no hematuria No fevers or chills, abdominal pain, flank pain, back pain No other new symptom Review of Systems Review of Systems: all noted and negative except for above Physical Exam Physical Exam: General- oriented x 3, not in distress, speaks in sentences with no effort or accessory muscle use Eyes- anicteric Neck- no JVD Lungs- clear breath sounds bilaterally, no rales/wheezes Heart- normal rate, regular rhythm; no murmurs Abdomen- normal bowel sounds, nondistended, soft, no tenderness No CVA tenderness Extremities- no pretibial edema, no calf tenderness Neuro- alert, oriented x 3; no gross focal neurologic deficits Skin- warm & dry Results & Data Results & Data Vital Signs (Past 12 Hours) Vital Signs Temp Pulse Resp BP Pulse Ox O2 Del Method 02/09/24 07:10 36.6 C 69 14 101/61 96 Room Air all noted and reviewed including below (3) Nicotine dependence, unspecified, uncomplicated Nicotine product type: cigarettes Qualified Code(s): F17.210 - Nicotine dependence, cigarettes, uncomplicated
--- NOTE | 2024-02-09 11:49 | Fluoroscopy Report ---
FL retrograde includes kub CLINICAL HISTORY: RT SIDE STENT COMPARISON STUDY: None. FLUOROSCOPY TIME: 6 seconds. FLUOROSCOPY IMAGES: 1 Ka,r: 0.9 mGy FINDINGS: Retrograde opacification of the right renal collecting system and placement of a right uret eral stent. Only the proximal portion of the stent is identified and appears in good position. IMPRESSION: Fluoroscopic assistance as above. ACT 112: Negative or not required by law. Electronically signed by: Shahbaz Slater M.D. 02/09/2024 11:47 AM
[2024-02-09] MEDS: oxyCODONE HCL IR 5 MG TAB (IMMEDIATE RELEASE) PO PRN (12:04)
[2024-02-09] MEDS: FERROUS SULFATE 325 MG TAB PO SCH (12:04)
[2024-02-09] MEDS: ASCORBIC ACID 500 MG TAB PO SCH (12:04)
--- NOTE | 2024-02-09 12:25 | Anesthesiology Progress Note ---
Date of Service February 09, 2024 Anesthesia Post Procedure Vital Signs Vital Signs: Temp Pulse Pulse Pulse Resp BP BP 02/09/24 11:52 36.6 C 66 15 111/70 02/09/24 11:35 36.6 C 68 12 111/66 02/09/24 11:25 73 12 101/64 02/09/24 11:19 36.6 C 65 16 118/51 L 02/09/24 07:10 36.6 C 69 14 101/61 02/08/24 17:13 36.6 C 84 17 112/71 02/08/24 16:13 71 16 119/82 02/08/24 14:15 60 02/08/24 13:46 36.4 C L 79 18 123/75 Pulse Ox O2 Del Method 02/09/24 11:52 96 Room Air 02/09/24 11:35 97 Room Air 02/09/24 11:25 95 Room Air 02/09/24 11:19 97 Room Air 02/09/24 07:10 96 Room Air 02/08/24 17:13 99 Room Air 02/08/24 16:13 98 Room Air 02/08/24 14:15 02/08/24 13:46 97 Room Air Pain Intensity Right Flank: Pain Intensity: 4 Transfer of Care Handoff Completed per policy Notes Mental Status: alert / awake / arousable Patient Amnestic to Procedure: Yes Nausea / Vomiting: adequately controlled Pain: adequately controlled Airway Patency, RR, SpO2: stable & adequate BP & HR: stable & adequate Hydration State: stable & adequate Anesthetic Complications: no major complications apparent and Pt Satisfied with anesthetic care
--- NOTE | 2024-02-09 13:56 | Discharge Summary ---
Discharge Summary Date of Service February 09, 2024 Notes For Next Care Provider Medication Changes From Visit Ibuprofen, Tylenol as needed Cephalexin 500 mg twice daily x 7 days Admission HPI Per Admitting Provider Omar Ferris is a 23y/o F with PMHx of nicotine dependence, depression with anxiety, gestational DM, amenorrhea/abnormal uterine bleeding, migraine-cluster headache syndrome, suicidal ideations, deliberate self-cutting, gender identity disorder and attention deficit disorder w/o hyperactivity who presented to the ED for further evaluation of ongoing right-sided flank pain x 3 days. History obtained from patient, and previous PCP/ED records. Patient was seen and evaluated yesterday in the ED for severe right-sided flank pain radiating to the abdomen, with associated N/V and poor appetite. Abdomen/pelvis CT performed yesterday showed evidence of an 8mm obstructing calculus in the right proximal ureter, as well as moderate right hydronephrosis. Urology was consulted at that time and it was decided that they should consider undergoing cystoscopy to the next day to mechanically pass the stone, as an 8mm kidney stone is less likely to spontaneously pass. However, the patient decided to leave AMA after being instructed that they could not leave the ED to go outside and smoke whilst waiting to be admitted to the floor. Records show that the patient has an uni dentified significant past trauma associated with [facility], and that they did not feel comfortable staying here overnight to move forward with treatment in the AM. Patient is seen at bedside in the ED this afternoon. Patient states that they left last night and went home to gather their thoughts as to whether or not they wanted to proceed with the cystoscopy procedure, per urology consideration. Patient mentions that they ultimately decided to return to the ED, as their pain has not fully subsided, and to meet with urology to discuss the next steps involved with treating this kidney stone. Patient states that they now feel more comfortable moving ahead with an invasive procedure to remove the kidney stone, such as cystoscopy. Patient currently reports 4/10 dull, achy pain in the right flank region that continues to radiate to their abdomen. However, patient mentions that they are feeling more comfortable now than they did at home this morning. Patient does report one episode of vomiting this morning, but denies any current nausea. Of note, patient did receive Zofran and ketorolac in the ED. Patient denies any fevers, chills or headaches. Patient does endorse some dizziness, but denies any recent falls at home. Patient further denies any dysuria, hematuria or bowel habit changes. Patient reports not eating since yesterday morning, but states they have been consuming an adequate amount of fluids. As alluded to previously, patient endorses not having much of an appetite these past 3 days. Patient does currently breastfeed their child at home, but is agreeable to "pump and dump" while they are admitted and receiving various medications that could potentially affect the quality/safety of their breast milk. Patient denies any hx of previous kidney stones. Admission Exam Per Admitting Provider GENERAL: Comfortable, anxious, tearful, no respiratory distress SKIN: Normal color, warm HEENT: [place] palpebral conjunctivae, no ptosis, dry buccal mucosa NECK : Supple, no tenderness CHEST : CTA, no tenderness HEART : RRR, no obvious murmurs ABDOMEN: Some distention, nontender EXTREMITIES : No LE swelling/tenderness, no other conspicuous deformities noted NEUROLOGIC : Coherent, no facial asymmetry, no other gross focality Principal Dx & Hospital Course #1 = Principal Diagnosis (1) Hydronephrosis with renal and ureteral calculous obstruction: (2) Right flank pain: per admitting service notes with addendum: -Abdomen/pelvis CT performed yesterday showed evidence of an 8mm obstructing calculus in the right proximal ureter, as well as moderate right hydronephrosis. -Continue aggressive IVF, pain management: oral Tylenol for mild pain or IV Toradol for moderate pain or oral oxycodone for severe pain. -Continue IV ondansetron PRN for nausea, order oral Flomax and strain urine. -Urology consult, spoke to on-call who recommended NPO at midnight for possible procedure in AM. 02/08 Status post ureteral stent placement Renal function preserved No signs of UTI per urinalysis Currently on IV fluids, Flomax Patient for discharge per urology service To follow-up with urology clinic in 1 to 2 weeks for ureteral stent management, definitive stone management Cephalexin 5 mg p.o. twice daily for 7 days per urology service As needed Tylenol, ibuprofen (3) Nicotine dependence, unspecified, uncomplicated: -Patient mentions that they feel like they will eventually need a nicotine patch to help curb the nicotine craving. -Patient attempting [contemplating stage] to quit. -Order nicotine patch Discharge Exam General- oriented x 3, not in distress, speaks in sentences with no effort or accessory muscle use Eyes- anicteric Neck- no JVD Lungs- clear breath sounds bilaterally, no rales/wheezes Heart- normal rate, regular rhythm; no murmurs Abdomen- normal bowel sounds, nondistended, soft, no tenderness No CVA tenderness Extremities- no pretibial edema, no calf tenderness Neuro- alert, oriented x 3; no gross focal neurologic deficits Skin- warm & dry Updated Medication List Medication Instructions Recorded Confirmed Type iron,carbonyl 65 mg-vitamin C 125 1 tab PO DAILY 10/19/23 02/08/24 History mg tablet,delayed release (Vitron-C) vit no.95-ferrous 1 tab PO DAILY 10/19/23 02/08/24 History fumarate 28 mg-folic acid 800 mcg tablet () acetaminophen 325 mg tablet 650 mg PO QID PRN Pain 02/07/24 02/08/24 History (Tylenol) cephalexin 500 mg capsule 500 mg PO BID 7 days #14 caps 02/09/24 Rx ibuprofen 400 mg tablet 400 mg PO Q6H PRN moderate to 02/09/24 Rx severe pain #20 tabs Hospital Stay Data Consultations 02/08/24 14:12 ED Decision to Admit Stat 02/08/24 14:22 Consult Urology Routine 02/08/24 17:41 Consult Urology Routine Procedures Performed Operation Date: 02/09/24 11:00 Actual Procedures p Cystoscopy, Retrograde Pyelogram, Right Ureteral Stent Insertion(Right) - Cruz Vásquez MD Diagnostic Imagining Performed 02/09/24 [place] retrograde includes kub Routine Pending Results Patient Have Any Pending Studies at Discharge: No Discharge Instructions Given to Patient (Per Discharging Provider) PLEASE REFER TO YOUR NEW MEDICATION LIST AND FOLLOW INSTRUCTIONS CAREFULLY. YOUR NEW MEDICATIONS INCLUDE: Tylenol-650 mg every 6 hours as needed for pain, do not take more than 3000 mg/day Ibuprofen-400 mg every 6 hours as needed for pain, always take with food Cephalexin- antibiotic for prevention of urinary tract infection - take a probiotic daily for at least 2 weeks Drink plenty of water. PLEASE CALL YOUR PRIMARY CARE PHYSICIAN OR RETURN TO THE ER IF WITH WORSENING OF SYMPTOMS, INCLUDING Worsening pain, problems with urination, blood in the urine, fevers or chills, nausea or vomiting, etc. FOLLOW UP WITH PRIMARY CARE PHYSICIAN OUTLINED ABOVE. FOLLOW-UP WITH UROLOGIST IN 1 WEEK FOR FURTHER MANAGEMENT OF URETERAL STENT AND URETERAL STONE. Total Time Total Time Spent Total Time Spent (In Minutes): 35 minutes
[2024-02-10] MEDS ORDERED: PRENATAL VITAMIN 1 TAB PO SCH (09:00)
== END 2024-02-09 14:20 | disposition home or self-care (01) | DRG 661 ==
LOC: ED 13:20 → 3W 13:46 → INTOOBSV 15:37 → SUATTDRO 15:37 → 3W 15:37